=== PATIENT | male | born 1955 | race Caucasian/White ===

== ENCOUNTER 2018-02-24 10:48 | Emergency (ER) | payer OTHER ==
[~2018-02-24] VITALS: Ht 188 cm; Wt 100.2 kg
[2018-02-24] MEDS ORDERED: [UNRECOGNIZED DRUG - OTHER] (10:56)
== END 2018-02-24 11:53 | disposition home or self-care (01) ==
LOC: ER 10:48
DX: S01.81XA Laceration without foreign body of other part of head, initial encounter (principal); W01.0XXA Fall on same level from slipping, tripping and stumbling without subsequent striking against object, initial encounter; Y93.89 Activity, other specified; Y92.814 Boat as the place of occurrence of the external cause; Y99.8 Other external cause status